=== PATIENT | female | born 1940 | race Caucasian/White ===

== ENCOUNTER 2017-01-16 08:38 | Inpatient (IN) | payer MEDICARE ==
[2017-01-16] MEDS ORDERED: Rosuvastatin 20 MG Tab PO SCH (15:45)
[2017-01-16] MEDS: Acetaminophen 325 MG Tab PO SCH ×2 (16:09→21:11)
[2017-01-16] MEDS ORDERED: Melatonin 10 MG Cap PO SCH (20:00)
[2017-01-16] MEDS ORDERED: FLU Vacc QS 2017-18 (36mos UP)/PF 60 MCG/0.5 ML Syringe IM ONE (21:00)
[2017-01-16] MEDS: metFORMIN 500 MG Tab PO SCH (21:10)
[2017-01-16] MEDS: Metoprolol Succinate 25 MG Tab.ER PO SCH (21:12)
[2017-01-16] MEDS: Pregabalin 75 MG Cap PO SCH (21:12)
[2017-01-16] MEDS: Naproxen 250 MG Tab PO SCH (21:13)
[2017-01-16] MEDS: oxyCODONE 5 MG Tab PO PRN (21:16)
[2017-01-17] MEDS: Lisinopril 20 MG Tab PO SCH (08:06)
[2017-01-17] MEDS: Pregabalin 75 MG Cap PO SCH ×2 (08:06→20:29)
[2017-01-17] MEDS: Naproxen 250 MG Tab PO SCH ×2 (08:06→20:30)
[2017-01-17] MEDS: metFORMIN 500 MG Tab PO SCH ×2 (08:07→20:29)
[2017-01-17] MEDS: oxyCODONE 5 MG Tab PO PRN ×2 (08:14→11:23)
[2017-01-17] MEDS: Acetaminophen 325 MG Tab PO SCH ×4 (09:49→20:28)
[2017-01-17] MEDS ORDERED: oxyCODONE 5 MG Tab ONE ×2 (11:21→15:27)
--- NOTE | 2017-01-17 13:11 | PCM.HP ---
H&P History of Present Illness - General Date of Service: 01/17/17 Admit Problem/Dx: Admission Diagnosis/Problem Admission Diagnosis/Problem Status post left hip replacement Source of Information: Patient, RN History Limitations: Reports: No Limitations - History of Present Illness Initial Comments - Free Text/Narative: 76 yr female admit to Swing bed for S/P left hip arthroplasty. Pt states this is the third hip replacement for her. States it is the first to this hip. She is feeling well and is excited to get her PT and OT going so she can get stronger and return home. She had her surgery at [facility] with Dr Rodriguez. States she had some concern with BM after surgery and now is regular. She is diabetic and takes Metformin. States she did have insulin after surgery, but nothing since then. She rates her pain a "6" today and states she did receive 1 oxycodone this am. States she had PT bid in [place] and started OT. She states she has PT at around 1p, today and OT around 9am. States she lives in [place]. Location: Reports: Lower Extremity, Left Severity: Moderate Improves with: Reports: Medication Worsens with: Reports: Movement Context: Reports: Other (surgery) Left Hip Pain Score (Numeric/FACES): 6 - Related Data Allergies/Adverse Reactions: Allergies Allergy/AdvReac Type Severity Reaction Status Date / Time Penicillins Allergy Other Verified 01/16/17 11:25 Sulfa (Sulfonamide Allergy Other Verified 01/16/17 11:25 Antibiotics) Home Medications: Home Meds Acetaminophen [Tylenol] 650 mg PO Q6H 01/16/17 [History] Cefprozil [Cefzil] 500 mg pe PO ASDIRECTED 01/16/17 [History] Docusate Sodium/Sennosides [Senna Plus] 1 tab PO BID 01/16/17 [History] Lisinopril [Lisinopril] 20 mg PO DAILY 01/16/17 [History] Melatonin [Melatin] 6 mg PO BEDTIME 01/16/17 [History] Metoprolol Succinate [Toprol Xl] 25 mg PO DAILY 01/16/17 [History] Naproxen 250 mg PO BID 01/16/17 [History] Polyethylene Glycol 3350 [MiraLAX] 17 gm PO DAILY 01/16/17 [History] Pregabalin [Lyrica] 75 mg PO BID 01/16/17 [History] Rosuvastatin [Crestor] 20 mg PO ASDIRECTED 01/16/17 [History] Warfarin Sodium [Coumadin] 7.5 mg PO DAILY 01/16/17 [History] metFORMIN HCl [Metformin HCl] 500 mg PO BID 01/16/17 [History] oxyCODONE 10 mg PO Q4HR 01/16/17 [History] Past Medical History HEENT History: Reports: Impaired Vision, Other (See Below) Other HEENT History: upper dentures Cardiovascular History: Reports: High Cholesterol, Hypertension Genitourinary History: Reports: UTI, Recurrent Musculoskeletal History: Reports: Osteoarthritis, Other (See Below) Other Musculoskeletal History: Hip replacement x 3 because " they wore out" 2 on right and one on left Endocrine/Metabolic History: Reports: Diabetes, Type II - Past Surgical History HEENT Surgical History: Reports: None Cardiovascular Surgical History: Reports: None Respiratory Surgical History: Reports: None GI Surgical History: Reports: None Female Surgical History: Reports: None Endocrine Surgical History: Reports: None Neurological Surgical History: Reports: None Social & Family History - Family History Family Medical History: Noncontributory - Tobacco Use Smoking Status *Q: Current Every Day Smoker Years of Tobacco use: 30 Packs/Tins Daily: 0.5 Used Tobacco, but Quit: No Month Tobacco Last Used: current Second Hand Smoke Exposure: No - Caffeine Use Caffeine Use: Reports: Coffee Other Caffeine Use: 2-4 - Alcohol Use Days Per Week of Alcohol Use: 3 Number of Drinks Per Day: 1 Total Drinks Per Week: 3 - Recreational Drug Use Recreational Drug Use: No H&P Review of Systems - Review of Systems: Review Of Systems: See Below General: Reports: No Symptoms HEENT: Reports: Visual Changes, Other (planning to have an eye exam on discharge.) Pulmonary: Reports: No Symptoms Cardiovascular: Reports: No Symptoms Gastrointestinal: Reports: Constipation. Denies: Hematochezia Genitourinary: Reports: No Symptoms Musculoskeletal: Reports: Back Pain, Leg Pain, Joint Pain Skin: Reports: Other (surgical site to left hip) Psychiatric: Reports: No Symptoms Neurological: Reports: No Symptoms Hematologic/Lymphatic: Reports: No Symptoms Immunologic: Reports: No Symptoms Exam - Exam Exam: See Below - Vital Signs Vital Signs: Last Vital Signs Temp 98 F 01/16/17 20:30 Pulse 78 01/16/17 21:12 Resp 18 01/16/17 20:30 BP 136/63 01/17/17 08:06 Pulse Ox 99 01/16/17 20:30 Weight: 166 lb - Exam General: Alert, Oriented HEENT: Mucosa Moist & [place] Neck: Supple, Trachea Midline Lungs: Clear to Auscultation, Normal Respiratory Effort Cardiovascular: Regular Rate, Regular Rhythm GI/Abdominal Exam: Normal Bowel Sounds, Soft, Non-Tender Extremities: Other (dressing to left hip is clean dry and intact.) Skin: Warm, Dry, Incision, Other (incision covered X [address] order) Neuro Extensive - Mental Status: Alert, Oriented x3, Normal Mood/Affect Psychiatric: Alert, Normal Affect, Normal Mood - Patient Data Lab Results Last 24 hrs: Laboratory Results - last 24 hr 01/16/17 01/17/17 01/17/17 Range/Units 19:03 09:08 11:08 POC Glucose 154 H 146 H 93 (74-110) mg/dL *Q Meaningful Use (ADM) - VTE *Q VTE Criteria *Q: - Stroke *Q Stroke Criteria *Q: - AMI *Q AMI Criteria *Q: - Problem List (1) Status post hip replacement SNOMED Code(s): 170177244, 531596041, 722506176 ICD Code: Z96.649 - PRESENCE OF UNSPECIFIED ARTIFICIAL HIP JOINT Status: Acute Priority: High Current Visit: Yes Qualifiers: Laterality: right Qualified Code(s): Z96.641 - Presence of right artificial hip joint Problem List Initiated/Reviewed/Updated: Yes Orders Last 24hrs: Active Orders 24 hr Category Date Time Status Patient Status [ADT] Routine ADT 01/16/17 15:59 Active Blood Glucose Check, Bedside [RC] QIDACANDBED Care 01/16/17 15:59 Active Oxygen Therapy [RC] PRN Care 01/16/17 15:59 Active Up With Assistance [RC] ASDIRECTED Care 01/16/17 15:59 Active VTE/DVT Education [RC] Per Unit Routine Care 01/16/17 15:59 Active Vital Signs [RC] 08,20 Care 01/16/17 15:59 Active OT Evaluation and Treatment [CONS] Routine Cons 01/16/17 15:59 Active PT Evaluation and Treatment [CONS] Routine Cons 01/16/17 15:59 Active Consistent Carbohydrate Diet [DIET] Diet 01/16/17 Dinner Ordered INR,PT,PROTHROMBIN TIME [COAG] Routine Lab 01/20/17 08:00 Ordered Acetaminophen [Tylenol] Med 01/16/17 15:45 Active 650 mg PO Q6H Docusate Sodium/Sennosides [Senna Plus] Med 01/16/17 20:00 Active 1 tab PO BID Lisinopril [Prinivil] Med 01/17/17 08:00 Active 20 mg PO DAILY Melatonin Med 01/16/17 20:00 Active 10 mg PO BEDTIME Metoprolol Succinate [Toprol XL] Med 01/16/17 18:00 Active 25 mg PO WITHDINNER Naproxen [Naprosyn] Med 01/16/17 20:00 Active 250 mg PO BID Pregabalin [Lyrica] Med 01/16/17 20:00 Active 75 mg PO BID Rosuvastatin [Crestor] Med 01/16/17 15:45 Active 20 mg PO SEECOMMENT Warfarin [Coumadin] Med 01/19/17 18:00 Active 5 mg PO DAILY@1800 Warfarin [Coumadin] Med 01/17/17 18:00 Active 7.5 mg PO DAILY@1800 metFORMIN [Glucophage] Med 01/16/17 20:00 Active 500 mg PO BID oxyCODONE Med 01/16/17 15:38 Active 5 mg PO Q4H PRN Resuscitation Status Routine Resus Stat 01/16/17 15:59 Ordered Medication Orders Acetaminophen (Tylenol) 650 mg PO Q6H [facility] Last Admin: 01/17/17 09:49 Dose: 650 mg Admin: 01/16/17 21:11 Dose: 650 mg Admin: 01/16/17 16:09 Dose: Not Given Lisinopril (Prinivil) 20 mg PO DAILY [facility] Last Admin: 01/17/17 08:06 Dose: 20 mg Melatonin (Melatonin) 10 mg PO BEDTIME [facility] Last Admin: 01/16/17 20:00 Dose: Metformin HCl (Glucophage) 500 mg PO BID [facility] Last Admin: 01/17/17 08:07 Dose: 500 mg Admin: 01/16/17 21:10 Dose: 500 mg Metoprolol Succinate (Toprol Xl) 25 mg PO WITHDINNER [facility] Last Admin: 01/16/17 21:12 Dose: 25 mg Naproxen (Naprosyn) 250 mg PO BID [facility] Last Admin: 01/17/17 08:06 Dose: 250 mg Admin: 01/16/17 21:13 Dose: 250 mg Oxycodone HCl (Oxycodone) 5 mg PO Q4H PRN PRN Reason: MODERATE PAIN Last Admin: 01/17/17 11:23 Dose: 10 mg Admin: 01/17/17 08:14 Dose: 5 mg Admin: 01/16/17 21:16 Dose: 5 mg Pregabalin (Lyrica) 75 mg PO BID [facility] Last Admin: 01/17/17 08:06 Dose: 75 mg Admin: 01/16/17 21:12 Dose: 75 mg Rosuvastatin Calcium (Crestor) 20 mg PO SEECOMMENT [facility] Senna/Docusate Sodium (Senna Plus) 1 tab PO BID [facility] Last Admin: 01/17/17 08:06 Dose: 1 tab Admin: 01/16/17 21:10 Dose: 1 tab Warfarin Sodium (Coumadin) 7.5 mg PO DAILY@1800 [facility] Stop: 01/18/17 20:00 Warfarin Sodium (Coumadin) 5 mg PO DAILY@1800 [facility] Stop: 01/19/17 20:00 Assessment/Plan Comment:: 0800 01-17-17 Admit this 76 yr female S/P left hip arthroplasty. She rates pain to left hip at "6" this am and just took oxycodone. States she wants to make sure she gets the Tylenol q 6 hr, Naprosyn bid and oxycodone 1-2 tab as needed for pain. She is up in the room with her walker, She is dressed for the day. States she is usually up by 6am every day. States difficulty with sleep and takes Melatonin at hs and didn't have any last night, as the pharmacy didn't have any. She is ready for her PT and OT and wants to get stronger and go home. States some concern with constipation, but her medications are working for this. A:S/P left hip arthroplasty P: PT/OT consult today to evaluate and treat for strengthening to return home on discharge. Pain medications as ordered. anticoagulant therapy: PT/INR 01-20-17. Coumadin dose adjusted accordingly. Diabetes Type 2: Monitor blood sugars before meals and hs. Metformin as prescribed.
[2017-01-17] MEDS ORDERED: oxyCODONE 5 MG Tab PO PRN (16:32)
[2017-01-17] MEDS ORDERED: Acetaminophen 325 MG Tab PO SCH (16:45)
[2017-01-17] MEDS ORDERED: Rosuvastatin 20 MG Tab PO SCH (16:45)
[2017-01-17] MEDS ORDERED: CEFPROZIL 500 MG PO SCH (16:45)
[2017-01-17] MEDS: Warfarin 7.5 MG Tab PO SCH (18:29)
[2017-01-17] MEDS: Metoprolol Succinate 25 MG Tab.ER PO SCH (18:33)
[2017-01-17] MEDS ORDERED: Naproxen 500 MG Tab ONE (19:52)
[2017-01-17] MEDS ORDERED: metFORMIN 500 MG Tab PO SCH (20:00)
[2017-01-17] MEDS ORDERED: oxyCODONE 5 MG Tab PO SCH (20:00)
[2017-01-17] MEDS ORDERED: Naproxen 250 MG Tab PO SCH (20:00)
[2017-01-17] MEDS ORDERED: Pregabalin 75 MG Cap PO SCH (20:00)
[2017-01-17] MEDS: Melatonin 3 MG Tab PO SCH (20:29)
[2017-01-18] MEDS: Acetaminophen 325 MG Tab PO SCH ×5 (00:01→20:08)
[2017-01-18] MEDS ORDERED: Lisinopril 20 MG Tab PO SCH (08:00)
[2017-01-18] MEDS ORDERED: Metoprolol Succinate 25 MG Tab.ER PO SCH (08:00)
[2017-01-18] MEDS ORDERED: Warfarin 7.5 MG Tab PO SCH ×2 (08:00→18:00)
[2017-01-18] MEDS: Naproxen 250 MG Tab PO SCH ×2 (08:17→20:08)
[2017-01-18] MEDS: Lisinopril 20 MG Tab PO SCH (08:18)
[2017-01-18] MEDS: oxyCODONE 5 MG Tab PO PRN ×2 (08:20→12:38)
[2017-01-18] MEDS: Pregabalin 75 MG Cap PO SCH ×2 (08:21→20:08)
[2017-01-18] MEDS: Polyethylene Glycol 3350 Powder 17 GM Packet PO SCH (08:24)
[2017-01-18] MEDS: metFORMIN 500 MG Tab PO SCH ×2 (08:28→20:07)
[2017-01-18] MEDS: CEFPROZIL 250 MG PO SCH ×2 (12:07→12:37)
[2017-01-18] MEDS ORDERED: Rosuvastatin 20 MG Tab ONE (17:52)
[2017-01-18] MEDS: Warfarin 7.5 MG Tab PO SCH ×2 (18:48→19:01)
[2017-01-18] MEDS: Rosuvastatin 20 MG Tab PO SCH ×2 (18:48→19:01)
[2017-01-18] MEDS: Metoprolol Succinate 25 MG Tab.ER PO SCH ×2 (18:49→19:02)
[2017-01-18] MEDS ORDERED: Melatonin 3 MG Tab ONE (20:04)
[2017-01-18] MEDS: Melatonin 3 MG Tab PO SCH (20:07)
[2017-01-19] MEDS: Acetaminophen 325 MG Tab PO SCH ×4 (04:04→19:54)
[2017-01-19] MEDS: metFORMIN 500 MG Tab PO SCH ×2 (08:24→19:54)
[2017-01-19] MEDS: Pregabalin 75 MG Cap PO SCH ×2 (08:27→19:54)
[2017-01-19] MEDS: oxyCODONE 5 MG Tab PO PRN (08:27)
[2017-01-19] MEDS: Naproxen 250 MG Tab PO SCH ×2 (08:27→19:54)
[2017-01-19] MEDS: Lisinopril 20 MG Tab PO SCH (08:28)
[2017-01-19] MEDS: Polyethylene Glycol 3350 Powder 17 GM Packet PO SCH (08:31)
[2017-01-19] MEDS ORDERED: Warfarin 5 MG Tab PO SCH (18:00)
[2017-01-19] MEDS: Metoprolol Succinate 25 MG Tab.ER PO SCH (18:19)
[2017-01-19] MEDS: Melatonin 3 MG Tab PO SCH (19:54)
[2017-01-20] MEDS: Acetaminophen 325 MG Tab PO SCH ×4 (02:22→20:01)
[2017-01-20] MEDS: Pregabalin 75 MG Cap PO SCH ×2 (08:00→20:01)
[2017-01-20] MEDS: Lisinopril 20 MG Tab PO SCH (08:00)
[2017-01-20] MEDS: Naproxen 250 MG Tab PO SCH ×2 (08:00→20:00)
[2017-01-20] MEDS: metFORMIN 500 MG Tab PO SCH ×2 (08:00→20:00)
[2017-01-20] MEDS: Polyethylene Glycol 3350 Powder 17 GM Packet PO SCH (08:01)
[2017-01-20] MEDS: CEFPROZIL 250 MG PO SCH (09:18)
[2017-01-20] MEDS: oxyCODONE 5 MG Tab PO PRN ×2 (10:49→20:00)
[2017-01-20] MEDS: Metoprolol Succinate 25 MG Tab.ER PO SCH (17:20)
[2017-01-20] MEDS ORDERED: Rosuvastatin 20 MG Tab ONE (18:51)
[2017-01-20] MEDS: Rosuvastatin 20 MG Tab PO SCH (18:51)
[2017-01-20] MEDS: Melatonin 3 MG Tab PO SCH (20:00)
[2017-01-21] MEDS: Acetaminophen 325 MG Tab PO SCH ×4 (01:54→19:59)
--- NOTE | 2017-01-21 06:14 | PCM.PN ---
- General Info Date of Service: 01/20/17 Admission Dx/Problem (Free Text): Admission Diagnosis/Problem Admission Diagnosis/Problem Status post left hip replacement Subjective Update: 01-21-2017 Pt states she is feeling well and pushing herself to be active. She is ambulating in the hallways and in her room. She states she is determined to get home and has help from her daughter and other friends and relatives at home. States she would be interested in outpatient therapy. States she would be comfortable at home and would like to be discharged this week. States her daughter can help her with her juarez hose in the mornings before she goes to work. States she is comfortable with taking her medications at home. Functional Status: Reports: Pain Controlled, Tolerating Diet, Ambulating - Review of Systems General: Reports: No Symptoms Cardiovascular: Reports: Other (mild swelling to lower legs) Gastrointestinal: Reports: No Symptoms Genitourinary: Reports: No Symptoms Musculoskeletal: Reports: Other (left hip pain, controlled with medications) Skin: Reports: Other (dressing to left hip) Neurological: Reports: No Symptoms Psychiatric: Reports: No Symptoms - Patient Data Vitals - Most Recent: Last Vital Signs Temp 97.8 F 01/20/17 08:00 Pulse 64 01/20/17 17:20 Resp 16 01/20/17 08:00 BP 148/65 H 01/20/17 17:20 Pulse Ox 100 01/20/17 08:00 Weight - Most Recent: 166 lb Lab Results Last 24 Hours: Laboratory Results - last 24 hr 01/20/17 01/20/17 01/20/17 Range/Units 06:51 07:15 07:15 WBC 5.1 (4.0-11.0) K/uL RBC 3.41 L (3.80-5.80) M/uL Hgb 11.1 L (11.5-16.5) g/dL Hct 33.8 L (37.0-47.0) % MCV 99 H (76-96) fL MCH 32.6 H (27.0-32.0) pg MCHC 32.8 (31.0-35.0) g/dL RDW 12.1 (11.0-16.0) % Plt Count 256 (150-500) K/uL MPV 9.4 (6.0-10.0) fL Neut % (Auto) 61.0 (45.0-70.0) % Lymph % (Auto) 19.3 L (20.0-40.0) % [place] % (Auto) 13.2 H (3.0-10.0) % Eos % (Auto) 5.5 H (1.0-5.0) % Baso % (Auto) 1.0 H (0.0-0.5) % Neut # (Auto) 3.09 (2.00-7.50) K/uL Lymph # (Auto) 0.98 L (1.50-4.00) K/uL [place] # (Auto) 0.67 (0.20-0.80) K/uL Eos # (Auto) 0.28 (0.04-0.40) K/uL Baso # (Auto) 0.05 (0.02-0.10) K/uL PT 15.4 H (9.0-11.5) sec INR 1.6 (1.0-3.5) Sodium (136-145) mmol/L Potassium (3.5-5.1) mmol/L Chloride (98-107) mmol/L Carbon Dioxide (21.0-32.0) mmol/L Anion Gap (5.0-15.0) mmol/L BUN (8-26) mg/dL Creatinine (0.55-1.02) mg/dL Est Cr Clr Drug Dosing mL/min Estimated GFR (MDRD) (>60) MLS/MIN BUN/Creatinine Ratio (6-25) Glucose (74-100) mg/dL POC Glucose 104 (74-110) mg/dL Calcium (8.5-10.1) mg/dL 01/20/17 Range/Units 07:15 WBC (4.0-11.0) K/uL RBC (3.80-5.80) M/uL Hgb (11.5-16.5) g/dL Hct (37.0-47.0) % MCV (76-96) fL MCH (27.0-32.0) pg MCHC (31.0-35.0) g/dL RDW (11.0-16.0) % Plt Count (150-500) K/uL MPV (6.0-10.0) fL Neut % (Auto) (45.0-70.0) % Lymph % (Auto) (20.0-40.0) % [place] % (Auto) (3.0-10.0) % Eos % (Auto) (1.0-5.0) % Baso % (Auto) (0.0-0.5) % Neut # (Auto) (2.00-7.50) K/uL Lymph # (Auto) (1.50-4.00) K/uL [place] # (Auto) (0.20-0.80) K/uL Eos # (Auto) (0.04-0.40) K/uL Baso # (Auto) (0.02-0.10) K/uL PT (9.0-11.5) sec INR (1.0-3.5) Sodium 143 (136-145) mmol/L Potassium 4.7 (3.5-5.1) mmol/L Chloride 108 H (98-107) mmol/L Carbon Dioxide 30.2 (21.0-32.0) mmol/L Anion Gap 9.5 (5.0-15.0) mmol/L BUN 15 (8-26) mg/dL Creatinine 0.90 (0.55-1.02) mg/dL Est Cr Clr Drug Dosing 51.34 mL/min Estimated GFR (MDRD) > 60 (>60) MLS/MIN BUN/Creatinine Ratio 16.7 (6-25) Glucose 104 H (74-100) mg/dL POC Glucose (74-110) mg/dL Calcium 8.6 (8.5-10.1) mg/dL Med Orders - Current: Current Medications Acetaminophen (Tylenol) 650 mg PO Q6H [facility] Last Admin: 01/21/17 01:54 Dose: Not Given Lisinopril (Prinivil) 20 mg PO DAILY [facility] Last Admin: 01/20/17 08:00 Dose: 20 mg Melatonin (Melatonin) 6 mg PO BEDTIME [facility] Last Admin: 01/20/17 20:00 Dose: 6 mg Metformin HCl (Glucophage) 500 mg PO BID [facility] Last Admin: 01/20/17 20:00 Dose: 500 mg Metoprolol Succinate (Toprol Xl) 25 mg PO WITHDINNER [facility] Last Admin: 01/20/17 17:20 Dose: 25 mg Naproxen (Naprosyn) 250 mg PO BID [facility] Last Admin: 01/20/17 20:00 Dose: 250 mg Non-Formulary Med (Cefprozil 250 Mg) 1 each PO Q48H [facility] Last Admin: 01/20/17 09:18 Dose: 1 each Oxycodone HCl (Oxycodone) 5 - 10 mg PO Q4H PRN PRN Reason: Pain Last Admin: 01/20/17 20:00 Dose: 5 mg Polyethylene Glycol (Miralax) 17 gm PO DAILY [facility] Last Admin: 01/20/17 08:01 Dose: Not Given Pregabalin (Lyrica) 75 mg PO BID [facility] Last Admin: 01/20/17 20:01 Dose: 75 mg Rosuvastatin Calcium (Crestor) 20 mg PO Q48H [facility] Last Admin: 01/20/17 18:51 Dose: 20 mg Senna/Docusate Sodium (Senna Plus) 1 tab PO BID [facility] Last Admin: 01/20/17 20:01 Dose: Not Given Warfarin Sodium (Coumadin) 6 mg PO DAILY@1800 [facility] Stop: 01/22/17 09:00 Last Admin: 01/20/17 17:19 Dose: 6 mg Discontinued Medications Acetaminophen (Tylenol) 650 mg PO Q6H [facility] Last Admin: 01/18/17 00:01 Dose: Not Given Acetaminophen (Tylenol) 650 mg PO Q6H [facility] Lisinopril (Prinivil) 20 mg PO DAILY [facility] Melatonin (Melatonin) 10 mg PO BEDTIME [facility] Last Admin: 01/16/17 20:00 Dose: Not Given Melatonin (Melatonin) Confirm Administered Dose 3 mg .ROUTE .STK-MED ONE Stop: 01/18/17 20:05 Last Admin: 01/19/17 04:04 Dose: Not Given Metoprolol Succinate (Toprol Xl) 25 mg PO DAILY [facility] Naproxen (Naprosyn) 250 mg PO BID [facility] Naproxen (Naprosyn) Confirm Administered Dose 500 mg .ROUTE .STK-MED ONE Stop: 01/17/17 19:53 Last Admin: 01/17/17 20:29 Dose: Not Given Non-Formulary Medication (Cefprozil [Cefzil]) 500 mg pe PO ASDIRECTED [facility] Oxycodone HCl (Oxycodone) 5 mg PO Q4H PRN PRN Reason: MODERATE PAIN Last Admin: 01/17/17 11:23 Dose: 10 mg Oxycodone HCl (Oxycodone) Confirm Administered Dose 10 mg .ROUTE .STK-MED ONE Stop: 01/17/17 11:22 Last Admin: 01/17/17 19:06 Dose: Not Given Oxycodone HCl (Oxycodone) Confirm Administered Dose 10 mg .ROUTE .STK-MED ONE Stop: 01/17/17 15:28 Last Admin: 01/17/17 15:47 Dose: 10 mg Oxycodone HCl (Oxycodone) 10 mg PO Q4H PRN PRN Reason: Pain Oxycodone HCl (Oxycodone) 10 mg PO Q4HR [facility] Pregabalin (Lyrica) 75 mg PO BID [facility] Rosuvastatin Calcium (Crestor) 20 mg PO SEECOMMENT [facility] Rosuvastatin Calcium (Crestor) Confirm Administered Dose 20 mg .ROUTE .STK-MED ONE Stop: 01/18/17 17:53 Last Admin: 01/18/17 19:00 Dose: Not Given Rosuvastatin Calcium (Crestor) Confirm Administered Dose 20 mg .ROUTE .STK-MED ONE Stop: 01/20/17 18:52 Last Admin: 01/20/17 19:57 Dose: Not Given Senna/Docusate Sodium (Senna Plus) 1 tab PO BID [facility] Warfarin Sodium (Coumadin) 7.5 mg PO DAILY@1800 [facility] Stop: 01/18/17 20:00 Last Admin: 01/18/17 19:01 Dose: 7.5 mg Warfarin Sodium (Coumadin) 5 mg PO DAILY@1800 [facility] Stop: 01/19/17 20:00 Last Admin: 01/19/17 18:19 Dose: 5 mg Warfarin Sodium (Coumadin) 7.5 mg PO DAILY [facility] - Exam General: Alert, Oriented Neck: Supple, Trachea Midline Lungs: Clear to Auscultation, Normal Respiratory Effort Cardiovascular: Regular Rate GI/Abdominal Exam: Normal Bowel Sounds, Soft, Non-Tender Extremities: Normal Capillary Refill, Pedal Edema, Leg Pain Peripheral Pulses: 2+: Dorsalis Pedis (L), Dorsalis Pedis (R) Skin: Warm, Dry Wound/Incisions: Dressing Dry and Intact Psy/Mental Status: Alert, Normal Affect, Normal Mood - Problem List & Annotations (1) Status post hip replacement SNOMED Code(s): 776999901, 542428176, 403274854 Code(s): Z96.649 - PRESENCE OF UNSPECIFIED ARTIFICIAL HIP JOINT Status: Acute Priority: High Current Visit: Yes Qualifiers: Laterality: left Qualified Code(s): Z96.642 - Presence of left artificial hip joint - Problem List Review Problem List Initiated/Reviewed/Updated: Yes - My Orders Last 24 Hours: My Active Orders 01/20/17 18:00 Warfarin [Coumadin] 6 mg PO DAILY@1800 01/22/17 08:00 INR,PT,PROTHROMBIN TIME [COAG] Routine - Plan Plan:: 0845 01-20-17 A:S/P left hip arthroplasty P: Continue on Swing bed program. PT/OT continue to work with for strengthening to return home on discharge. Recreational therapy consult today Pain medications as ordered. Dressing change this week to left hip. anticoagulant therapy: PT/INR 01-22-17. Coumadin dose adjusted accordingly. JUAREZ rao on. Pt to elevate legs when in bed. Lab results reviewed today and normal. Diabetes Type 2: Metformin as prescribed. [employer] consult today.
[2017-01-21] MEDS: Polyethylene Glycol 3350 Powder 17 GM Packet PO SCH (07:32)
[2017-01-21] MEDS: Lisinopril 20 MG Tab PO SCH (07:32)
[2017-01-21] MEDS: Naproxen 250 MG Tab PO SCH ×2 (07:32→19:59)
[2017-01-21] MEDS: Pregabalin 75 MG Cap PO SCH ×2 (07:32→20:00)
[2017-01-21] MEDS: metFORMIN 500 MG Tab PO SCH ×2 (07:33→19:59)
[2017-01-21] MEDS: oxyCODONE 5 MG Tab PO PRN ×2 (07:43→19:58)
[2017-01-21] MEDS: Metoprolol Succinate 25 MG Tab.ER PO SCH (18:41)
[2017-01-21] MEDS: Melatonin 3 MG Tab PO SCH (19:58)
[2017-01-22] MEDS: Acetaminophen 325 MG Tab PO SCH ×4 (02:00→17:39)
[2017-01-22] MEDS: Naproxen 250 MG Tab PO SCH (08:25)
[2017-01-22] MEDS: Pregabalin 75 MG Cap PO SCH (08:25)
[2017-01-22] MEDS: metFORMIN 500 MG Tab PO SCH (08:25)
[2017-01-22] MEDS: Lisinopril 20 MG Tab PO SCH (08:32)
[2017-01-22] MEDS: Polyethylene Glycol 3350 Powder 17 GM Packet PO SCH (08:36)
[2017-01-22] MEDS: CEFPROZIL 250 MG PO SCH (08:50)
--- NOTE | 2017-01-22 10:16 | PCM.DCSUM1 ---
Discharge Summary - Hospital Course Free Text/Narrative:: 01-22-17 This 76 yr female with s/p left hip replacement is up and ambulatory. She had her dressing changed per her surgeon/staff yesterday and states area is healing well. Pt states she has had other hip replacements done and knows what she needs to do with exercise and diet with use of coumadin. States she knows her medications and will fill her Rx in [place] tomorrow with [facility]. States she will f/u in [place] for her PT/INR. She will continue with PT outpatient. Pt discharged today to care of family and follow-up with surgeon as ordered. - Discharge Data Discharge Date: 01/22/17 Discharge Disposition: Home, Self-Care 01 Condition: Good - Discharge Diagnosis/Problem(s) (1) Status post hip replacement SNOMED Code(s): 350630039, [id number], [id number] ICD Code: Z96.649 - PRESENCE OF UNSPECIFIED ARTIFICIAL HIP JOINT Status: Acute Priority: High Qualifiers: Laterality: left Qualified Code(s): Z96.642 - Presence of left artificial hip joint - Patient Summary/Data Consults: Consultations 01/16/17 15:59 OT Evaluation and Treatment [CONS] Routine Please Evaluate and Treat. OT Reason for Consult: s/p left hip arthroplasty This query below is only for informational purposes and is not editable. PT Evaluation and Treatment [CONS] Routine Please Evaluate and Treat. PT Reason for Consult: s/p left hip arthroplasty This query below is only for informational purposes and is not editable. - Patient Instructions Diet, Other: diet for use of coumadin Activity: Apply Ice, Elevate Extremity, Full Weight Bearing, No Strenuous Activities Driving: Do Not Drive Wound/Incision Care: Keep Operative Site/Wound Site Clean and Dry Notify Provider of: Fever, Increased Pain, Swelling and Redness - Discharge Plan Prescriptions/Med Rec: oxyCODONE 10 mg PO Q4HR #100 tablet Acetaminophen 500 mg PO 6XDAY 30 Days tablet Naproxen 250 mg PO BID #30 tablet Pregabalin [Lyrica] 75 mg PO BID #60 cap Warfarin [Coumadin] 6 mg PO DAILY #15 tablet Home Medications: Home Meds Cefprozil [Cefzil] 500 mg pe PO ASDIRECTED 01/16/17 [History] Docusate Sodium/Sennosides [Senna Plus] 1 tab PO BID 01/16/17 [History] Lisinopril 20 mg PO DAILY 01/16/17 [History] Metoprolol Succinate [Toprol Xl] 25 mg PO DAILY 01/16/17 [History] Rosuvastatin [Crestor] 20 mg PO ASDIRECTED 01/16/17 [History] metFORMIN HCl [Metformin HCl] 500 mg PO BID 01/16/17 [History] Acetaminophen 500 mg PO 6XDAY 30 Days tablet 01/22/17 [Rx] Melatonin 10 mg PO BEDTIME tablet 01/22/17 [Rx] Naproxen 250 mg PO BID #30 tablet 01/22/17 [Rx] Pregabalin [Lyrica] 75 mg PO BID #60 cap 01/22/17 [Rx] Warfarin [Coumadin] 6 mg PO DAILY #15 tablet 01/22/17 [Rx] oxyCODONE 10 mg PO Q4HR #100 tablet 01/22/17 [Rx] - Discharge Summary/Plan Comment DC Time >30 min.: No Discharge Summary/Plan Comment: 01-22-17 This 76 yr female with s/p left hip replacement is up and ambulatory. She had her dressing changed per her surgeon/staff yesterday and states area is healing well. Pt states she has had other hip replacements done and knows what she needs to do with exercise and diet with use of coumadin. States she knows her medications and will fill her Rx in [place] tomorrow with [facility]. States she will f/u in [place] for her PT/INR. She will continue with PT outpatient. Pt discharged today to care of family and follow-up with surgeon as ordered. - General Info Date of Service: 01/22/17 Admission Dx/Problem (Free Text: Admission Diagnosis/Problem Admission Diagnosis/Problem Status post left hip replacement Subjective Update: 01-22-2017 Pt states she is feeling well and pushing herself to be active. She is ambulating in the hallways and in her room. She states she is determined to get home and has help from her daughter and other friends and relatives at home. States she would be interested in outpatient therapy. States she would be comfortable at home and would like to be discharged this week. States her daughter can help her with her jacobo hose in the mornings before she goes to work. States she is comfortable with taking her medications at home. Functional Status: Reports: Pain Controlled - Review of Systems General: Reports: No Symptoms Pulmonary: Reports: No Symptoms Cardiovascular: Reports: Edema Gastrointestinal: Reports: No Symptoms Musculoskeletal: Reports: Leg Pain Skin: Reports: Other (surgical wound left hip) - Patient Data Vitals - Most Recent: Last Vital Signs Temp 97.4 F 01/22/17 08:00 Pulse 64 01/22/17 08:00 Resp 20 01/22/17 08:00 BP 122/78 01/22/17 08:32 Pulse Ox 97 01/22/17 08:00 Weight - Most Recent: 166 lb Lab Results - Last 24 hrs: Laboratory Results - last 24 hr 01/22/17 Range/Units 07:20 Whole Blood INR 1.9 (1.0-3.5) Med Orders - Current: Current Medications Acetaminophen (Tylenol) 650 mg PO Q6H [facility] Last Admin: 01/22/17 08:25 Dose: 650 mg Lisinopril (Prinivil) 20 mg PO DAILY [facility] Last Admin: 01/22/17 08:32 Dose: 20 mg Melatonin (Melatonin) 6 mg PO BEDTIME [facility] Last Admin: 01/21/17 19:58 Dose: 6 mg Metformin HCl (Glucophage) 500 mg PO BID [facility] Last Admin: 01/22/17 08:25 Dose: 500 mg Metoprolol Succinate (Toprol Xl) 25 mg PO WITHDINNER [facility] Last Admin: 01/21/17 18:41 Dose: 25 mg Naproxen (Naprosyn) 250 mg PO BID [facility] Last Admin: 01/22/17 08:25 Dose: 250 mg Non-Formulary Med (Cefprozil 250 Mg) 1 each PO Q48H [facility] Last Admin: 01/22/17 08:50 Dose: 1 each Oxycodone HCl (Oxycodone) 5 - 10 mg PO Q4H PRN PRN Reason: Pain Last Admin: 01/21/17 19:58 Dose: 10 mg Polyethylene Glycol (Miralax) 17 gm PO DAILY [facility] Last Admin: 01/22/17 08:36 Dose: Not Given Pregabalin (Lyrica) 75 mg PO BID [facility] Last Admin: 01/22/17 08:25 Dose: 75 mg Rosuvastatin Calcium (Crestor) 20 mg PO Q48H [facility] Last Admin: 01/20/17 18:51 Dose: 20 mg Senna/Docusate Sodium (Senna Plus) 1 tab PO BID [facility] Last Admin: 01/22/17 08:25 Dose: 1 tab Discontinued Medications Acetaminophen (Tylenol) 650 mg PO Q6H [facility] Last Admin: 01/18/17 00:01 Dose: Not Given Acetaminophen (Tylenol) 650 mg PO Q6H [facility] Lisinopril (Prinivil) 20 mg PO DAILY [facility] Melatonin (Melatonin) 10 mg PO BEDTIME [facility] Last Admin: 01/16/17 20:00 Dose: Not Given Melatonin (Melatonin) Confirm Administered Dose 3 mg .ROUTE .STK-MED ONE Stop: 01/18/17 20:05 Last Admin: 01/19/17 04:04 Dose: Not Given Metoprolol Succinate (Toprol Xl) 25 mg PO DAILY [facility] Naproxen (Naprosyn) 250 mg PO BID [facility] Naproxen (Naprosyn) Confirm Administered Dose 500 mg .ROUTE .STK-MED ONE Stop: 01/17/17 19:53 Last Admin: 01/17/17 20:29 Dose: Not Given Non-Formulary Medication (Cefprozil [Cefzil]) 500 mg pe PO ASDIRECTED [facility] Oxycodone HCl (Oxycodone) 5 mg PO Q4H PRN PRN Reason: MODERATE PAIN Last Admin: 01/17/17 11:23 Dose: 10 mg Oxycodone HCl (Oxycodone) Confirm Administered Dose 10 mg .ROUTE .STK-MED ONE Stop: 01/17/17 11:22 Last Admin: 01/17/17 19:06 Dose: Not Given Oxycodone HCl (Oxycodone) Confirm Administered Dose 10 mg .ROUTE .STK-MED ONE Stop: 01/17/17 15:28 Last Admin: 01/17/17 15:47 Dose: 10 mg Oxycodone HCl (Oxycodone) 10 mg PO Q4H PRN PRN Reason: Pain Oxycodone HCl (Oxycodone) 10 mg PO Q4HR [facility] Pregabalin (Lyrica) 75 mg PO BID [facility] Rosuvastatin Calcium (Crestor) 20 mg PO SEECOMMENT [facility] Rosuvastatin Calcium (Crestor) Confirm Administered Dose 20 mg .ROUTE .STK-MED ONE Stop: 01/18/17 17:53 Last Admin: 01/18/17 19:00 Dose: Not Given Rosuvastatin Calcium (Crestor) Confirm Administered Dose 20 mg .ROUTE .STK-MED ONE Stop: 01/20/17 18:52 Last Admin: 01/20/17 19:57 Dose: Not Given Senna/Docusate Sodium (Senna Plus) 1 tab PO BID [facility] Warfarin Sodium (Coumadin) 7.5 mg PO DAILY@1800 [facility] Stop: 01/18/17 20:00 Last Admin: 01/18/17 19:01 Dose: 7.5 mg Warfarin Sodium (Coumadin) 5 mg PO DAILY@1800 [facility] Stop: 01/19/17 20:00 Last Admin: 01/19/17 18:19 Dose: 5 mg Warfarin Sodium (Coumadin) 7.5 mg PO DAILY [facility] Warfarin Sodium (Coumadin) 6 mg PO DAILY@1800 [facility] Stop: 01/22/17 09:00 Last Admin: 01/21/17 18:41 Dose: 6 mg - Exam General: Reports: Alert, Oriented Neck: Reports: Supple Lungs: Reports: Clear to Auscultation, Normal Respiratory Effort Cardiovascular: Reports: Regular Rate GI/Abdominal Exam: Soft, Non-Tender Extremities: Normal Capillary Refill, Pedal Edema Skin: Reports: Warm, Dry Wound/Incisions: Reports: Dressing Dry and Intact Psy/Mental Status: Reports: Alert, Normal Affect *Q Meaningful Use (DIS) - VTE *Q VTE Criteria *Q: - Stroke *Q Stroke Criteria *Q: - AMI *Q AMI Criteria *Q:
[2017-01-22] MEDS: Metoprolol Succinate 25 MG Tab.ER PO SCH (17:39)
[2017-01-22] MEDS: Rosuvastatin 20 MG Tab PO SCH (17:39)
[2017-01-22 17:41] VITALS: BP 190/98
== END 2017-01-22 17:43 | disposition home or self-care (01) | DRG 561 ==
LOC: UNDOADMIN 15:26 → LB.MS 15:26
PROVIDERS: ADMIT Nurse Practitioner Family; ATTEND Nurse Practitioner Family
DX: Z47.1 Aftercare following joint replacement surgery (principal); Z96.643 Presence of artificial hip joint, bilateral; E11.9 Type 2 diabetes mellitus without complications; I10 Essential (primary) hypertension; Z79.84 Long term (current) use of oral hypoglycemic drugs; Z79.01 Long term (current) use of anticoagulants; M19.90 Unspecified osteoarthritis, unspecified site; Z87.440 Personal history of urinary (tract) infections; E78.00 Pure hypercholesterolemia, unspecified; H54.7 Unspecified visual loss; Z88.0 Allergy status to penicillin; Z88.2 Allergy status to sulfonamides; Z98.890 Other specified postprocedural states
CPT/HCPCS: 36415; 80048; 82962; 85025; 85610; 90686; 97110-GP; 97161-GP; 97165-GO; 97530-GO; 97530-GP; 97535-GO; A9270-GY; G0008